=== PATIENT | female | born 1945 | race African-American/Black ===

== ENCOUNTER 2018-06-28 17:50 | Emergency (ER) | payer OTHER ==
--- NOTE | 2018-06-28 18:00 | PDOC ---
Rapid Medical Evaluation Time Seen by Provider: 06/28/18 17:58 Medical Evaluation: Allergies Allergy/AdvReac Type Severity Reaction Status Date / Time "most antibiotics" Allergy Uncoded 06/28/18 17:58 cillins Allergy Uncoded 06/28/18 17:58 06/28/18 17:58 Pt c/o: hx sciatica, but now constipated and making the pain worse, no bm since 3 days, tried otc meds Pt on brief exam: left sciatica tenderness, bs + x 4, Pt ordered for: kub pt to proceed to the ED: Discharge Disposition - Diagnosis Low back pain - Referrals - Patient Instructions - Post Discharge Activity
[2018-06-28 18:02] VITALS: TEMP 98.7; BMI 18.8
--- NOTE | 2018-06-28 19:31 | PDOC ---
History of Present Illness - General Chief Complaint: Constipation Stated Complaint: CONSTIPATION Time Seen by Provider: 06/28/18 17:58 History Source: Patient Exam Limitations: No Limitations - History of Present Illness Initial Comments: 06/28/18 19:25 Pt is a 73yo f with PMH of htn, sciatica presenting to ED with complaints of 3 days of constipation. This has happened to the pt in the past 10 years ago and she had to have a disimpaction. Pt says she has tried otc medications such as milk of magnesia and Miralax but nothing has helped. She tried a dulcolax enema and she noticed some "water coming out around the edges" but it did not work. She has not been passing gas. Denies abdominal pain, n/v/d, fevers, chills, chest pain, urinary symptoms. Pcp: PMH: see hpi PSH: none Meds: toprol xl social: denies Past History - Past Medical History Allergies/Adverse Reactions: Allergies Allergy/AdvReac Type Severity Reaction Status Date / Time "most antibiotics" Allergy Uncoded 06/28/18 17:58 cillins Allergy Uncoded 06/28/18 17:58 Home Medications: Ambulatory Orders Aspirin 81 mg PO DAILY 06/28/18 Metoprolol Succinate [Toprol Xl -] 50 mg PO DAILY 06/28/18 COPD: No HTN: Yes Other medical history: sciatica, bronchitis req hospitalization - Suicide/Smoking/Psychosocial Hx Smoking History: Unknown if ever smoked Review of Systems - Review of Systems Constitutional: No: Chills, Fever HEENTM: No: Symptoms Reported Respiratory: No: Cough, Shortness of Breath Cardiac (ROS): No: Chest Pain, Lightheadedness, Palpitations ABD/GI: Yes: Symptoms Reported, See HPI, Constipated. No: Diarrhea, Nausea, Rectal Bleeding, Vomiting, Abdominal cramping, Tarry Stools : No: Burning, Dysuria, Pain Musculoskeletal: No: Back Pain, Joint Pain, Muscle Weakness Integumentary: No: Symptoms Reported Neurological: No: Symptoms reported *Physical Exam - Vital Signs Last Vital Signs Temp Pulse Resp BP Pulse Ox 98.7 F 87 18 128/67 94 L 06/28/18 17:59 06/28/18 17:59 06/28/18 17:59 06/28/18 17:59 06/28/18 17:59 - Physical Exam General Appearance: Yes: Nourished, Appropriately Dressed. No: Apparent Distress HEENT: positive: EOMI, ONESIMO Neck: positive: Trachea midline, Supple. negative: Lymphadenopathy (R), Lymphadenopathy (L) Respiratory/Chest: positive: Lungs Clear, Normal Breath Sounds Cardiovascular: positive: Regular Rhythm, Regular Rate, S1, S2. negative: Edema , JVD, Murmur Vascular Pulses: Carotid (R): 2+, Carotid (L): 2+, Dorsalis-Pedis (R): 2+, Doralis-Pedis (L): 2+ Gastrointestinal/Abdominal: positive: Normal Bowel Sounds, Soft. negative: Protuberent, Distended, Guarding, Rebound, Tenderness, Hernia, Mass Rectal Exam: positive: other (stool palpated in rectum.). negative: decreased tone, hemorrhoids Musculoskeletal: negative: CVA Tenderness Extremity: positive: Normal Capillary Refill Neurologic: positive: slabber II-XII NML intact, Fully Oriented, Alert, Normal Mood/ Affect, Normal Response, Motor Strength 5/5 Medical Decision Making - Medical Decision Making 06/28/18 22:31 73yo f with PMH of htn, sciatica and constipation presenting to ED with complaints of 3 days of constipation. Has tried otc meds and enema, did not evacuate stool. Had "squirting" Vitals: wnl PE: benign Ordered xray and UA Xray showed distension and constipation. Will order CT to r/o obstruction given pt is not passing gas. However low suspicion due to benign exam. Given PO contrast. Tried manual disimpaction however could not evacuate. PT signed out to Dr. Slater *DC/Admit/Observation/Transfer Diagnosis at time of Disposition: Constipation Qualifiers: Constipation type: unspecified constipation type Qualified Code(s): K59.00 - Constipation, unspecified - Referrals Referrals: ON STAFF,NOT [Primary Care Provider] - - Patient Instructions - Post Discharge Activity
--- NOTE | 2018-06-28 20:32 | PDOC ---
Attending Attestation - Resident Resident Name: Keke Neves - ED Attending Attestation I have performed the following: I have examined & evaluated the patient, The case was reviewed & discussed with the resident, I agree w/resident's findings & plan, Exceptions are as noted - HPI HPI: 06/29/18 00:59 Ms Apple is a 73 yo F who presents to the ER due to constipation H/o chronic back pain She has had 3 days of symptoms The last time this happened, she was disempacted in the ER Pt has tried several OTC medications with no effect Has not passed gas No abd pain No fevers or chills No dysuria - Physicial Exam PE: 06/29/18 01:01 PE: General Appearance: Yes: Nourished, Appropriately Dressed. No: Apparent Distress HEENT: positive: EOMI, ONESIMO Neck: positive: Trachea midline, Supple. negative: Lymphadenopathy (R), Lymphadenopathy (L) Respiratory/Chest: positive: Lungs Clear, Normal Breath Sounds Cardiovascular: positive: Regular Rhythm, Regular Rate, S1, S2. negative: Edema , JVD, Murmur Vascular Pulses: Carotid (R): 2+, Carotid (L): 2+, Dorsalis-Pedis (R): 2+, Doralis-Pedis (L): 2+ Gastrointestinal/Abdominal: positive: Normal Bowel Sounds, Soft. negative: Protuberent, Distended, Guarding, Rebound, Tenderness, Hernia, Mass Rectal Exam: positive: other (stool palpated in rectum.). negative: decreased tone, hemorrhoids Musculoskeletal: negative: CVA Tenderness Extremity: positive: Normal Capillary Refill Neurologic: positive: hand tile maker II-XII NML intact, Fully Oriented, Alert, Normal Mood/ Affect, Normal Response, Motor Strength 5/5 - Medical Decision Making 06/29/18 01:32 FINDINGS: There is abundant stool in the colon/constipation. However there is no large or small bowel obstruction. No bowel inflammation. Negative for colitis or diverticulitis. Appendix not well -visualized but no para cecal inflammation or inflammatory mass. No urinary tract obstruction. No free intraperitoneal air or free fluid. No obvious abnormalities of the liver, spleen, pancreas, or extrarenal glands. There are atelectatic changes at the lung bases interspersed with infiltrate and peribronchial thickening. Uncertain if this is chronic or acute. Correlation with prior scans would be most helpful. Osseous structures are intact Will do Enema Will plan to discharge to home with a bowel regimen
[2018-06-28 21:13] LABS: URINE APPEARANCE CLEAR; URINE BILIRUBIN NEGATIVE (<2.0 mg/dL); URINE COLOR STRAW; URINE GLUCOSE (UA) NEGATIVE (NEGATIVE); URINE KETONE TRACE (NEGATIVE); URINE LEUK ESTERASE TRACE (NEGATIVE); URINE NITRITE NEGATIVE (NEGATIVE); URINE PROTEIN NEGATIVE (NEGATIVE); URINE UROBILINOGEN NEGATIVE mg/dL (0.2-1.0)
[2018-06-28 21:30] LABS: URINE MUCUS RARE
[2018-06-28 23:30] VITALS: PULSE 72
[2018-06-29 03:27] VITALS: BP 128/74
--- NOTE | 2018-06-29 03:45 | PDOC ---
*Physical Exam - Vital Signs Last Vital Signs Temp Pulse Resp BP Pulse Ox 98.7 F 72 17 128/74 100 06/28/18 17:59 06/29/18 02:00 06/29/18 02:00 06/29/18 02:00 06/28/18 22:00 ED Treatment Course - ADDITIONAL ORDERS Additional order review: Laboratory Results 06/28/18 20:55 Urine Color Straw Urine Appearance Clear Urine pH 5.0 Ur Specific Colony 1.008 L Urine Protein Negative Urine Glucose (UA) Negative Urine Ketones Trace H Urine Blood Negative Urine Nitrite Negative Urine Bilirubin Negative Urine Urobilinogen Negative Ur Leukocyte Esterase Trace Urine WBC (Auto) 3 Urine RBC (Auto) 1 Urine Mucus Rare Medical Decision Making - Medical Decision Making 06/29/18 03:39 Pt Signed out by Dr[address] Neves 73 yo complains of 3 days constipation without concerning s/s on exam. pt received soap gale enema and another attempt at manual disimpaction which was unsuccessful. Abdominal CT with PO contrast negative for SBO and shows stool present Will DC patient home with lactulose and GI follow up *DC/Admit/Observation/Transfer Diagnosis at time of Disposition: Constipation Qualifiers: Constipation type: unspecified constipation type Qualified Code(s): K59.00 - Constipation, unspecified - Discharge Dispostion Disposition: HOME Condition at time of disposition: Stable Decision to Admit order: No - Prescriptions Prescriptions: Lactulose (Oral Use) [Cephulac -] 20 gm PO TID #1 bottle - Referrals Referrals: ON STAFF,NOT [Primary Care Provider] - Nick Ureña DO [Staff Physician] - - Patient Instructions Printed Discharge Instructions: DI for Constipation Additional Instructions: Please make an appointment with your Family Doctor and the GI doctor referred to you within the next 2 days. Please take Lactulose as prescribed. Please return to the Emergency Room for new or worsening symptoms including but not limited to: 2 days of continued constipation, severe abdominal pain, vomiting, high fevers or blood in the stool. Thank you - Post Discharge Activity
== END 2018-06-29 03:56 | disposition home or self-care (01) ==
LOC: JER 17:50
DX: K59.00 Constipation, unspecified (principal); I10 Essential (primary) hypertension; M54.32 Sciatica, left side; Z79.82 Long term (current) use of aspirin
CPT/HCPCS: 74018-TC-FY; 74176-TC; 81003; 81015; 99283-25